=== PATIENT | female | born 1945 | race Caucasian/White ===

== ENCOUNTER 2021-04-15 05:05 | Emergency (ER) | payer MEDICARE ==
[~2021-04-15] VITALS: Ht 165.1 cm; Wt 74.0 kg
--- NOTE | 2021-04-15 05:11 | PHYS DOC ---
Past History Past Medical History: Cancer, Hypertension Past Surgical History: Cancer Surgery General Adult HPI: HPI: ".. I was having trouble sleeping.. and when I don't get sleep.. I have problems.. well about 330 I got the terrible headache and seemed like I was seeing stars..maybe little dizzy.. the stars are gone.. but I wanted to get checked out for a stroke... I don't want to be admitted here .. but if I have to be admitted.. I want to be transfered to ... I just did not want to drive all the way down there if nothing was wrong.. so I came here..." " all my care is at ... " " I really think it is that I didn't eat. .. because all my symptoms are gone now.." Patient is a 75 year old female who presents with above complaints and on set of Rt. sided headache dizziness and seeing stars. Onset of symptoms at 0330 hrs. Patient reports visual changes have resolved. Patient denies any previous h istory of TIAs or CVAs. Patient denies any trauma. Patient had recent travel to the [employer], driving back . At that time she did have some upper respiratory congestion and drainage and was tested for Covid which was negative.. The patient denies any specific ill contacts. Patient has significant past history of breast cancer status post treatment and surgery, melanoma status post treatment and surgery, insomnia, hypertension, anxiety. Pt. does have atypical migraine symptoms when she does not eat regular. Patient reports she gets all her care at . Patient friend at bedside advises that she is at her normal mental baseline. Patient denies any recent changes in meds. Review of Systems: Review of Systems: Constitutional: Denies fever or chills Eyes: Denies change in visual acuity HENT: Denies nasal congestion or sore throat Respiratory: Denies cough or shortness of breath Cardiovascular: Denies chest pain or edema GI: Denies abdominal pain, nausea, vomiting, bloody stools or diarrhea : Denies dysuria Musculoskeletal: Denies back pain or joint pain Integument: Denies rash Neurologic: Complains of headache- currently resolved. ,. Denies focal weakness or sensory changes currently. Did have some dizzy and visual stars at 0330 hrs. Endocrine: Denies polyuria or polydipsia Lymphatic: Denies swollen glands Psychiatric: Denies depression or anxiety Family History: Family History: Noncontributory presentation Current Medications: Current Meds: See nursing for home meds Allergies: Allergies: Allergic to tetracycline Physical Exam: PE: Constitutional: , no acute distress, non-toxic appearance. Very anxious. HENT: Normocephalic, atraumatic, bilateral external ears normal, oropharynx moist, no oral exudates, nose normal. No field deficits. TMs are dull but no infection appreciated Eyes: PERRLA, EOMI, conjunctiva normal, no discharge. (History of cataract surgery in June) Neck: Normal range of motion, no tenderness, supple, no stridor. No bruits a ppreciated Cardiovascular:Heart rate regular rhythm, no murmur [] Lungs & Thorax: Bilateral breath sounds equal at apex on auscultation [. Has some basilar crackles on left base . Abdomen: Bowel sounds normal, soft, no tenderness, no masses, no pulsatile masses. [] Skin: Warm, dry, no erythema, no rash. [] Back: No tenderness, no CVA tenderness. [] Extremities: No tenderness, no cyanosis, no clubbing, ROM intact, no edema. Scar left forearm Neurologic: Alert and oriented X 3, normal motor function, normal sensory function, no focal deficits noted. Ambulatory without problems. Food Service Technician equal. Right-hand dominant. NIH 0. Psychologic: Affect anxious, judgement normal, mood normal. [] EKG: EKG: My interpretation EKG shows a sinus rhythm at 81 bpm. No acute morphology. There is some mild LVH changes. But no findings of acute STEMI. Time of the EKG is 0550 hrs.] Radiology/Procedures: Radiology/Procedures: [address] [address] IMAGING REPORT Signed PATIENT: MARIA DEL ROSARIO LOMELI ACCOUNT: [id number] : 1945 LOCATION: ER AGE: 75 SEX: F EXAM STATUS: REG ER ORD. PHYSICIAN: LANCE GARCIA MD REASON: headache, visual changes PROCEDURE: CT HEAD WO CONTRAST EXAM: CT Head without IV contrast CLINICAL HISTORY: Reason: headache, visual changes / Spl. Instructions: / History: COMPARISON: None. TECHNIQUE: Routine CT of the head without contrast. PQRS compliance statement - One or more of the following individualized dose reduction techniques were utilized for this study: 1. Automated exposure control 2. Adjustment of the mA and/or kV according to patient size 3. Use of iterative reconstruction technique FINDINGS: There is no evidence of hemorrhage, mass or extra-axial fluid collection. Bradford-white differentiation is maintained with no evidence of edema. There is no mass effect or shift of the intracranial structures. The ventricles, basilar cisterns and cortical sulci are normal in size and configuration for the patients stated age. The cerebellum and brainstem are unremarkable. The calvarium demonstrates no evidence of fracture or focal lesion. There is normal aeration of the visualized paranasal sinuses and mastoid air cells. The visualized portions of the orbits are normal. IMPRESSION: No evidence for acute intracranial process. Electronically signed by: Rey Medina MD (04/15/2021 5:24 AM) [facility] DICTATED AND SIGNED BY: REY MEDINA MD DATE: 04/15/21522 CC: LANCE GARCIA MD; PCP,UNKNOWN ~MTH0 0 [][place] [address] IMAGING REPORT Signed PATIENT: MARIA DEL ROSARIO LOMELI ACCOUNT: [id number] : 1945 LOCATION: ER AGE: 75 SEX: F EXAM STATUS: REG ER ORD. PHYSICIAN: LANCE GARCIA MD REASON: headache, visual changes PROCEDURE: CT HEAD WO CONTRAST EXAM: CT Head without IV contrast CLINICAL HISTORY: Reason: headache, visual changes / Spl. Instructions: / History: COMPARISON: None. TECHNIQUE: Routine CT of the head without contrast. PQRS compliance statement - One or more of the following individualized dose reduction techniques were utilized for this study: 1. Automated exposure control 2. Adjustment of the mA and/or kV according to patient size 3. Use of iterative reconstruction technique FINDINGS: There is no evidence of hemorrhage, mass or extra-axial fluid collection. Bradford-white differentiation is maintained with no evidence of edema. There is no mass effect or shift of the intracranial structures. The ventricles, basilar cisterns and cortical sulci are normal in size and configuration for the patients stated age. The cerebellum and brainstem are unremarkable. The calvarium demonstrates no evidence of fracture or focal lesion. There is normal aeration of the visualized paranasal sinuses and mastoid air cells. The visualized portions of the orbits are normal. IMPRESSION: No evidence for acute intracranial process. Electronically signed by: Rey Medina MD (04/15/2021 5:24 AM) [facility] DI[facility]ATED AND SIGNED BY: REY MEDINA MD DATE: 04/15/21522 CC: LANCE GARCIA MD; PCP,UNKNOWN ~MTH0 0 Heart Score: C/O Chest Pain: N/A HEART Score for Chest Pain: HEART Score for Chest Pain Response (Comments) Value History Slighlty/Non-Suspicious 0 ECG Normal 0 Age > 65 2 Risk Factors 1 or 2 Risk Factors 1 Troponin < Normal Limit 0 Total 3 Risk Factors: Risk Factors: DM, Current or recent (<one month) smoker, HTN, HLP, family history of CAD, obesity. Risk Scores: Score 0 - 3: 2.5% MACE over next 6 weeks - Discharge Home Score 4 - 6: 20.3% MACE over next 6 weeks - Admit for Clinical Observation Score 7 - 10: 72.7% MACE over next 6 weeks - Early Invasive Strategies Course & Med Decision Making: Course & Med Decision Making Pertinent Labs and Imaging studies reviewed. (See chart for details) Patient remains symptom-free. Reviewed labs , x-ray results and CT findings. Patient declines admission and neurology consult at this time. States she wished to be discharged. Risk and benefits discussed. Patient exhibits UCAR capacity. States she will follow up with her primary care. Encourage patient take a daily baby aspirin until follow-up. Return if any concerns. Follow-up pending Covid test. Must follow up. CT and CXR clouded to [facility] for her primary to review. Impression: 1. Atypical migraine-(versus TIA versus CVA) 2. Left lower pulmonary infiltrate-suspect viral pneumonia 3. Mild elevation CK= 219 4. HTN Hx. 5. History of melanoma- 6. History of breast cancer [] Dragon Disclaimer: Dragon Disclaimer: This electronic medical record was generated, in whole or in part, using a voice recognition dictation system. Dragon Disclaimer This chart was dictated in whole or in part using Voice Recognition software in a busy, high-work load, and often noisy Emergency Department environment. It may contain unintended and wholly unrecognized errors or omissions. LANCE GARCIA MD Apr 15, 2021 05:10
[2021-04-15] MEDS ORDERED: IV RINGERS SOLUTION,LACTATED 1,000 ML IV SCH (05:15)
--- NOTE | 2021-04-15 05:27 | RAD ---
EXAM: CT Head without IV contrast CLINICAL HISTORY: Reason: headache, visual changes / Spl. Instructions: / History: COMPARISON: None. TECHNIQUE: Routine CT of the head without contrast. PQRS compliance statement - One or more of the following individualized dose reduction techniques wer e utilized for this study: 1. Automated exposure control 2. Adjustment of the mA and/or kV according to patient size 3. Use of iterative reconstruction technique FINDINGS: There is no evidence of hemorrhage, mass or extra-axial fluid collection. Bradford-white differentiation is maintained with no evidence of edema. There is no mass effect or shift of the intracranial structures. The ventricles, basilar cisterns and cortical sulci are normal in size and configuration for the braden ents stated age. The cerebellum and brainstem are unremarkable. The calvarium demonstrates no evidence of fracture or focal lesion. There is normal aeration of the visualized paranasal sinuses and mastoid air cells. The visualized portions of the orbits are normal. IMPRESSION: No evidence for acute intracranial process. Electronically signed by: Rey Lemon MD (04/15/2021 5:24 AM) [facility]
[2021-04-15 05:38] VITALS: BP 152/90
[2021-04-15 05:48] LABS: BASO % 1 % (0-3); EOS # 0.1 x10^3/uL (0.0-0.7); EOS % 2 % (0-3); HEMATOCRIT 42.2 % (36.0-47.0); LYMPH # 1.7 x10^3/uL (1.0-4.8); LYMPH % 25 % (24-48); MEAN CORPUSCULAR HEMOGLOBIN 31 pg (25-35); MEAN CORPUSCULAR HGB CONC 33 g/dL (31-37); MEAN CORPUSCULAR VOLUME 92 fL (79-100); MONO # 0.6 x10^3/uL (0.0-1.1); MONO % 9 % (0-9); NEUT # 4.6 x10^3uL (1.8-7.7); NEUT % 65 % (31-73); PLATELET COUNT 157 x10^3/uL (140-400); RED BLOOD COUNT 4.58 x10^6/uL (3.50-5.40); RED CELL DISTRIBUTION WIDTH 12.9 % (11.5-14.5); WHITE BLOOD COUNT 7.1 x10^3/uL (4.0-11.0)
[2021-04-15 05:58] LABS: ANION GAP 11 (6-14); BLOOD UREA NITROGEN 17 mg/dL (7-20); CARBON DIOXIDE 27 mmol/L (21-32); CHLORIDE 101 mmol/L (98-107); CREATININE 0.9 mg/dL (0.6-1.0); GFR 61.2; GLUCOSE 105 mg/dL (70-99); POTASSIUM 4.1 mmol/L (3.5-5.1); SODIUM 139 mmol/L (136-145)
[2021-04-15 06:10] LABS: ALBUMIN 3.7 g/dL (3.4-5.0); ALK PHOS 57 U/L (46-116); ALT (SGPT) 34 U/L (14-59); AST (SGOT) 24 U/L (15-37); DIRECT BILIRUBIN 0.1 mg/dL (0.0-0.2); LIPASE 181 U/L (73-393); MAGNESIUM 2.3 mg/dL (1.8-2.4); TOTAL BILIRUBIN 0.3 mg/dL (0.2-1.0); TOTAL PROTEIN 7.3 g/dL (6.4-8.2)
[2021-04-15 06:11] LABS: C REACTIVE PROTEIN < 0.5 mg/L (0-3.3)
--- NOTE | 2021-04-15 06:25 | EKG ---
[address] [address] Test Date: 2021-04-15 Test Time: 05:50:30 Pat Name: MARIA DEL ROSARIO LOMELI Department: Room: Gender: F Assistant Property Manager: : 1945 Requested By: LANCE GARCIA Order Number: [id number] Reading MD: Clifton Jackson Measurements Intervals [place] Rate: 81 P: 54 ID: [id number] QRS: -1 QRSD: 74 T: 48 QT: 374 QTc: 435 Interpretive Statements SINUS RHYTHM LEFTWARD AXIS Electronically Signed On 04-15-2021 14:24:21 OCULAR CARE TECHNOLOGIST by Clifton Jackson
--- NOTE | 2021-04-15 06:37 | RAD ---
EXAM: AP View of the chest DATE: 04/15/2021 5:21 AM INDICATION: Reason: dyspnea / Spl. Instructions: / History: COMPARISON: No Prior FINDINGS: The heart is not enlarged. Mediastinal and hilar contours are normal. Patchy airspace opacities left lung base likely developing process such as pneumonia. No pleural effusion or pneumothorax. IMPRESSION: Patchy airspace opacities left lung base likely developing process such as pneumonia. Electronically signed by: Rey Lemon MD (04/15/2021 6:34 AM) [facility]
[2021-04-15] MEDS ORDERED: ASPIRIN 325 MG TABLET PO ONE (06:45)
[2021-04-15 06:56] LABS: BARBITURATES NEG (NEG); BENZODIAZEPINES NEG (NEG); CANNABINOIDS NEG (NEG); COCAINE NEG (NEG); METHADONE NEG (NEG); OPIATES NEG (NEG); PHENCYCLIDINE NEG (NEG)
[2021-04-15 06:57] LABS: BILIRUBIN,URINE NEG (NEG); CLARITY,URINE CLEAR; COLOR,URINE YELLOW; GLUCOSE,URINE NEG (NEG); NITRITE,URINE NEG (NEG); RBC,URINE 0 /HPF (0-2); UROBILINOGEN,URINE 0.2 mg/dL (0.2 mg/dL); WBC,URINE 0 /HPF (0-4)
[2021-04-15 06:58] LABS: BACTERIA,URINE 0 /HPF (0-FEW); SQUAMOUS EPITHELIAL CELL,UR OCC /LPF
[2021-04-15 07:00] LABS: AMPHETAMINE/METHAMPHETAMINE NEG (NEG)
== END 2021-04-15 07:22 | disposition home or self-care (01) ==
LOC: ER 05:05
DX: G43.909 Migraine, unspecified, not intractable, without status migrainosus (principal); R91.8 Other nonspecific abnormal finding of lung field; R74.8 Abnormal levels of other serum enzymes; I10 Essential (primary) hypertension; Z85.3 Personal history of malignant neoplasm of breast; G47.00 Insomnia, unspecified; F41.9 Anxiety disorder, unspecified; Z88.1 Allergy status to other antibiotic agents
CPT/HCPCS: 70450; 71045; 80048; 80076; 80307; 81001; 82550; 82947; 83690; 83735; 83880; 84443; 84484; 85025; 85379; 85610; 85730; 86140; 87426; 93005; 99285; C9803; U0003